=== PATIENT | female | born 1960 | race Caucasian/White ===

== ENCOUNTER 2019-08-29 09:52 | Outpatient (CLI) | payer BC, SELFPAY ==
--- NOTE | ~2019-08-29 | MR_ITS ---
EXAMINATION: MR knee LT wo con DATE: 08/29/2019 11:03 INDICATION: Left knee pain TECHNIQUE: Magnetic resonance imaging (MRI) of the left knee was performed without intravenous contra st. Sequences included coronal PD-weighted FSE, coronal PD-weighted FS FSE, sagittal T2-weighted FSE , sagittal PD-weighted FS FSE and axial PD weighted fat saturated FSE. COMPARISON: None. FINDINGS: Evaluation mildly limited by small amount of motion artifact or blurring on multiple sequences. Medial compartment: There is increased intrasubstance signal in the posterior body of the medial meniscus which does not contact the articular surface consistent with mucoid degeneration. Complex tear extending from the fr ee edge to the periphery of the lateral side of the posterior horn of the medial meniscus near the po sterior root. Partial thickness cartilage loss throughout the medial compartment with smooth chondral surface along the anterior aspect of the medial tibial plateau and weightbearing medial femoral cond yle. Mild chondral surface irregularity along the posterior aspect of the lateral tibial plateau and central weightbearing medial femoral condyle. Deep chondral ulceration with underlying central subcho ndral osteophytes at the posterior weightbearing medial femoral condyle. Lateral compartment: Lateral meniscus is normal. Deep chondral fissuring without degenerative subarticular changes along t he posterior aspect of the lateral tibial plateau. Patellofemoral compartment: Chondral ulceration with involving less than 50% the cartilage thickness with chondral surface regula rity at the medial trochlea. Deeper chondral ulceration in places/near full-thickness and with underl rama cortical irregularity and subarticular edema and mild cystic change along the caudal aspect of t he trochlear groove and lateral trochlea. Ligaments and tendons: Anterior and posterior cruciate ligaments are normal. There is mild thickening and minimal increased signal at the proximal aspect of the medial and fibular collateral ligaments without surrounding saba a consistent with scarring which could be related to prior sprains or surgery. The extensor mechanism is normal. The visualized medial and lateral hamstring tendons as well as the iliotibial band are no rmal. Fluid: Small left knee joint effusion at the suprapatellar pouch. No loose osteochondral bodies identified. Osseous/other: Postoperative changes with multiple foci of susceptibility artifact within and along side the medial and lateral aspects of the distal femur with suggestion of prior screw tracks extending across the aleisha ne likely related to earlier since removed internal fixation. Bone alignment is normal. No acute frac ture or pathologic marrow replacing process. IMPRESSION: 1. Full-thickness complex tear at the posterior horn of the medial meniscus. 2. 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 3. Likely reactive small left knee joint effusion. 4. Postoperative changes at the distal femur suggesting prior internal fixation. Correlate with surgi mahogany history. 5. Mild scarring at the proximal aspect of the medial and fibular collateral ligaments related to ayden or sprain or surgery. Reviewed, dictated and finalized at location A. IMPRESSION: 1. Full-thickness complex tear at the posterior horn of the medial meniscus. 2. Mild tricompartmental osteoarthritis with high-grade chondromalacia in the m edial and patellofemoral compartments and moderate grade chondromalacia in the lateral compartment. 3. Likely reactive small left knee joint effusion. 4. Postoperative changes at t
== END 2019-08-29 09:53 | disposition home or self-care (01) ==
LOC: ANHIMG 09:54
PROVIDERS: PCP Family Medicine; Visit Provider Physician Assistant Medical
DX: M25.562 Pain in left knee (principal); S83.232A Complex tear of medial meniscus, current injury, left knee, initial encounter; M17.12 Unilateral primary osteoarthritis, left knee; M94.262 Chondromalacia, left knee; Z98.890 Other specified postprocedural states
CPT/HCPCS: 73721

== ENCOUNTER 2019-11-06 11:00 | Outpatient (RCR) | payer BC, SELFPAY ==
--- NOTE | 2019-10-10 11:44 | PTOPEVAL ---
PHYSICAL THERAPY EVALUATION AND PLAN OF CARE 11-10-2019 Thank you for referring Maria Luisa Engel to [facility] for the diagnosis of L knee pain.? She is scheduled to be seen for therapy? 2 x/week for 3 weeks. Please review, sign, date and return this plan of care CYNTHIA. I agree with and certify that the following plan of care is medically necessary. Referring Physician Date Attending Provider: Luis Antonio Marvin MD *PT Outpatient Evaluation Start: 10/10/19 10:35 Document 10/10/19 10:39 MARY ELLEN (Rec: 10/10/19 11:39 MARY ELLEN [id number]) Therapy Assessment Status Assessment Status Assessment Status Evaluation Outpatient Past Medical History Past Medical History Source of Past Medical History Patient Neurological History Hx Neurological Disorders No Significant History Cardiovascular History Hx Cardiac Disorders No Significant History Respiratory History Hx Respiratory Disorders No Significant History Gastrointestinal History Hx Gastrointestinal Disorders No Significant History Genitourinary History Hx Genitourinary Disorders No Significant History Musculoskeletal History Hx Orthopedic Surgery Yes: B carpal tunnel; L knee surg for growth plate as child Hx Other Musculoskeletal Disorders Yes: sprain R ankle Endocrine History Hx Diabetes Yes: no meds, diet control HEENT History Hx HEENT Disorders No Significant History Reproductive History Hx Section Yes: 2x Other History Hx Other Medical Conditions Yes: obesity Evaluation Information Problem Diagnosis L knee OA Cause July 2019 Subjective Information hyperextended L knee and heard Query Text:As Reported By Patient/ a pop; for 2 days, only home Family and to bathroom - due to pain, could not walk on it; is able to walk better now, but problems putting full wt on it at times and it theo backwards; Diagnostic Tests X-Rays For This Problem Yes: tri compartment OA MRI For This Problem Yes: tear posterior medial meniscus Previous Treatments Previous Treatments For This Problem no PT for her knee Prior Level of Function Activity Level (Last 3 Months) 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
--- NOTE | 2019-10-26 08:07 | PCPTNOTE ---
PT called and cancelled appointment @ 10:15 this date due to being sick. Continue per POC.
--- NOTE | 2019-10-30 13:55 | PCPTNOTE ---
pt called and canceled today's reeval due to being ill. Rescheduled for next week;
--- NOTE | 2019-11-06 11:41 | PTOPEVAL ---
PHYSICAL THERAPY DISCHARGE 11-06-2019 See the clinical summary below for her status for discharge. Thank you for referring Maria Luisa Engel to [facility].? Please review, sign, date and return this discharge CYNTHIA. I agree with and certify that the following plan of care is medically necessary. Referring Physician Date Attending Provider: Luis Antonio Marvin MD *PT Outpatient Discharge Document 11/06/19 11:07 MARY ELLEN (Rec: 11/06/19 11:41 MARY ELLEN [id number]) Subjective Information Maria Luisa stated: saw this AM Query Text:As Reported By Patient/ , going to have A1-C checked Family and if OK, will get an injection in knee and in the future, will need a TKR; agrees to d/c PT; Pain Assessment Timing of Pain Assessment Timing of Pain Assessment Assessment Pain Scale Pain Scale Used Numeric (1 - 10) Self Report Pain Assessment Left Knee(s) Reported Pain Level 1 Pain Frequency Acute,Continuous Lowest Pain Intensity 1 Greatest Pain Intensity 8 Pain Aggravating Factors Stair Climbing,Walking,Weight Bearing/Standing Other Pain Aggravating Factors reported tolerance: stand 10 min;walk- sometimes when first stand, catches Pain Relief Interventions Used By Elevation,Ice,Inactivity/Rest, Patient Medication,Support of Extremity Other Alleviating Interventions take aleve PRN Additional Pain Comments sometimes knee feels like it is buckling backwards;and catch with sit>sta Pain Score Pain Score 1: Self Report Additional Pain Score Comments leukotape helps decrease knee pain; applied leukotape- 2 strips: medial knee vertical strip and horizontal strip, at angle from medial popliteal to superior patella Lower Extremity Range of Motion General Lower Extremity Range of Motion Gross Lower Extremity Range of Motion sitting: L knee AROM 0'- 105'; Comments increase pain with knee flexion--at medial knee and lateral popliteal crease; Lower Extremity Muscle Strength Testing General Lower Extremity Strength Gross Lower Extremity Strength supine: SLR x 20 reps; side lying hip abduction and adduction x 20 reps; prone hip extension x 20 reps; single leg standing 2-3 seconds- due to increased yvette
== END 2019-11-06 14:25 | disposition home or self-care (01) ==
LOC: ANHPT 11:00
PROVIDERS: PCP Family Medicine; Visit Provider Orthopaedic Surgery
DX: M25.562 Pain in left knee (principal); M17.12 Unilateral primary osteoarthritis, left knee
CPT/HCPCS: 97014; 97110; 97140; 97161; G0283